=== PATIENT | male | born 1985 | race Hispanic/Latino ===

== ENCOUNTER 2020-09-05 07:58 | Outpatient (CLI) | payer OTHER ==
--- NOTE | 2020-09-05 10:16 | ULT ---
ABDOMINAL ULTRASOUND: INDICATION: Abnormal liver function tests. FINDINGS: Gallbladder has a normal sonographic appearance. No evidence of gallstones. The liver is echogenic consistent with fatty infiltration. No focal liver mass. The spleen size is upper normal measured at 13-14 cm. Pancreas is mostly obscured. Common bile duct within normal range measured at 3 mm. The aorta and IVC appear unremarkable as visualized. Right kidney shows severe hydronephrosis. The left kidney is unremarkable. Urinary bladder is imaged and is mildly distended but is unremarkable in appearance. A postvoid imag e of the bladder was obtained which demonstrated adequate emptying of the bladder. The right hydrone phrosis shows no interval change on the postvoid study. IMPRESSION: 1. Severe right hydronephrosis. Etiology is not apparent on this study. Recommend further evaluati on. 2. Liver is echogenic consistent with fatty infiltration. 2. Borderline splenomegaly. POS: AGW
== END 2020-09-05 07:59 | disposition home or self-care (01) ==
LOC: BICULT 07:58
PROVIDERS: ATTEND Physician Assistant
DX: R94.5 Abnormal results of liver function studies (principal); N13.30 Unspecified hydronephrosis; R93.2 Abnormal findings on diagnostic imaging of liver and biliary tract
CPT/HCPCS: 93975

== ENCOUNTER 2023-04-23 13:17 | Outpatient (CLI) | payer OTHER | END 2023-04-23 13:18 | disposition home or self-care (01) | LOC: NM 13:17 | PROVIDERS: ATTEND Urology | DX: N13.30 Unspecified hydronephrosis (principal) | CPT/HCPCS: 78708; A4641; A9562 ==